=== PATIENT | female | born 1930 | race Caucasian/White ===

== ENCOUNTER 2017-10-03 14:58 | Observation (INO) | payer MEDICARE, OTHER ==
[2017-10-03 16:14] LABS: ADD MAN DIFF? NO
[2017-10-03 16:15] LABS: WHITE BLOOD COUNT 5.3 10^3/ul (4.8-10.8)
[2017-10-03 16:15] LABS: BASOPHILS % 0.6 % (0.0-2.0); EOSINOPHILS # 0.2 10^3/ul (0.0-0.5); EOSINOPHILS % 4.2 % (0.0-7.0); HEMATOCRIT 26.6 % (37.0-47.0); HEMOGLOBIN 8.9 g/dl (12.0-16.0); LYMPHOCYTES # 1.5 10^3/ul (0.8-2.9); LYMPHOCYTES % 29.1 % (15.0-51.0); MEAN CORPUSCULAR HGB CONC 33.5 g/dl (32.0-37.0); MEAN CORPUSCULAR VOLUME 92.7 fl (82.0-101.0); MEAN PLATELET VOLUME 11.6 fl (7.4-10.4); MONOCYTE # 0.5 10^3/ul (0.3-0.9); MONOCYTES % 8.7 % (0.0-11.0); NEUTROPHILS % 56.8 % (39.0-77.0); PLATELET COUNT 206 10^3/UL (140-415); RED BLOOD COUNT 2.87 10^6/ul (4.20-5.40); RED CELL DISTRIBUTION WIDTH 12.2 % (11.5-14.5)
[2017-10-03] MEDS: NITROGLYCERIN 2% 1 GM OINT PKT TD (16:24)
[2017-10-03] MEDS: NITROGLYCERIN (SL) 0.4 MG TAB SL (16:24)
[2017-10-03 16:27] LABS: ANION GAP 17 (8-16); BLOOD UREA NITROGEN 27 mg/dl (7-20); CALCIUM 9.1 mg/dl (8.4-10.2); CARBON DIOXIDE 31 mmol/L (21-31); CHLORIDE 96 mmol/L (97-110); CREATININE 0.91 mg/dl (0.44-1.00); GLUCOSE 239 mg/dl (70-220); POTASSIUM 3.5 mmol/L (3.5-5.1); SODIUM 140 mmol/L (135-144)
[2017-10-03 16:45] LABS: TROPONIN-I < 0.012 ng/ml (0.00-0.12)
[2017-10-03] MEDS ORDERED: ONDANSETRON 4 MG INJ IV ×2 (17:30→19:00)
[2017-10-03] MEDS ORDERED: ACETAMINOPHEN 325 MG TAB PO ×2 (17:30→19:00)
[2017-10-03] MEDS ORDERED: HYDROCODONE/APAP (5/325) TAB PO (19:00)
[2017-10-03] MEDS ORDERED: morphine 2 MG INJ IV (19:00)
[2017-10-03] MEDS ORDERED: NITROGLYCERIN (SL) 0.4 MG TAB SL (19:00)
[2017-10-03] MEDS ORDERED: NACL 0.9% 3 ML SYG IV (19:00)
[2017-10-03] MEDS ORDERED: hydrALAzine 20 MG INJ IV (19:00)
[2017-10-03] MEDS ORDERED: MAGNESIUM HYDROXIDE 30ML CUP PO (19:00)
[2017-10-03] MEDS ORDERED: LORAZEPAM 2 MG INJ IV (19:00)
[2017-10-03] MEDS ORDERED: ALBUTEROL/IPRATROPIUM (NEB) 3 ML AMP HHN (19:00)
[2017-10-03] MEDS ORDERED: NA PHOSPHATE/BIPHOS 133 ML ENEMA PR (19:00)
[2017-10-03 19:15] LABS: INR 0.94; PROTIME 12.7 Sec (11.9-14.9)
[2017-10-03 19:16] LABS: PARTIAL THROMBOPLASTIN TIME 27.4 Sec (25.0-35.0)
[2017-10-03] MEDS ORDERED: MECLIZINE 25 MG TAB PO (19:30)
[2017-10-03 20:36] LABS: FREE T4 (FREE THYROXINE) 1.51 ng/dl (0.85-1.93)
[2017-10-03] MEDS: HEPARIN 5,000 UNIT/0.5 ML VIAL SC (20:49)
[2017-10-03] MEDS ORDERED: GLUCOSE GEL 15 GRAM TUBE PO ×2 (21:10)
[2017-10-03] MEDS ORDERED: GLUCAGON 1 MG INJ IM (21:10)
[2017-10-03] MEDS ORDERED: DEXTROSE 50% 50 ML SYRINGE IV ×2 (21:10)
[2017-10-03] MEDS ORDERED: GLUCOSE GEL 15 GRAM TUBE BUCCAL (21:10)
[2017-10-03] MEDS: INSULIN GLARGINE [LANtus] 3 ML PEN SC (21:24)
[2017-10-03] MEDS: INSULIN ASPART [NOVOLOG] 3 ML PEN SC (21:25)
[2017-10-03] MEDS: GABAPENTIN 100 MG CAP PO (22:06)
[2017-10-03] MEDS: ATORVASTATIN 20 MG TAB PO (22:06)
[2017-10-03] MEDS: ESCITALOPRAM 10 MG TAB PO (22:07)
[2017-10-03 22:46] LABS: ADD UMIC YES; UR ASCORBIC ACID NEGATIVE (NEGATIVE); UR BACTERIA FEW /HPF (NONE SEEN); UR BILIRUBIN (Dip) NEGATIVE (NEGATIVE); UR BLOOD (Dip) NEGATIVE (NEGATIVE); UR CLARITY CLEAR (CLEAR); UR COLOR YELLOW (YELLOW); UR GLUCOSE (Dip) 1+ mg/dL (NEGATIVE); UR KETONES (Dip) NEGATIVE (NEGATIVE); UR LEUKOCYTE ESTERASE (Dip) 1+ Leu/ul (NEGATIVE); UR NITRITE (Dip) NEGATIVE (NEGATIVE); UR RBC 2 /HPF (0-5); UR SPECIFIC GRAVITY (Dip) 1.008 (1.003-1.030); UR SQUAMOUS EPITHELIAL CELL FEW /HPF (FEW); UR TOTAL PROTEIN (Dip) NEGATIVE (NEGATIVE); UR UROBILINOGEN (Dip) NEGATIVE (NEGATIVE); UR WBC 1 /HPF (0-5)
[2017-10-03 23:37] LABS: CREATINE KINASE 50 IU/L (23-200)
[2017-10-03 23:49] LABS: CK INDEX 1.5; CK-MB 0.77 ng/ml (0.0-2.4); TROPONIN-I 0.013 ng/ml (0.00-0.12)
[2017-10-04 01:46] LABS: CREATINE KINASE 51 IU/L (23-200)
[2017-10-04 02:00] LABS: CK INDEX 1.4; CK-MB 0.71 ng/ml (0.0-2.4); TROPONIN-I 0.017 ng/ml (0.00-0.12)
[2017-10-04] MEDS: ACCU-CHEK XX (02:02)
[2017-10-04] MEDS: INSULIN ASPART [NOVOLOG] 3 ML PEN SC ×4 (08:14→21:00)
[2017-10-04] MEDS: HEPARIN 5,000 UNIT/0.5 ML VIAL SC ×2 (08:18→20:26)
[2017-10-04] MEDS: FISH OIL 1,000 MG CAP PO (08:19)
[2017-10-04] MEDS: PANTOPRAZOLE (EC) 40 MG TAB PO (08:19)
[2017-10-04] MEDS: DOCUSATE SODIUM 100 MG CAP PO ×2 (08:19→20:23)
[2017-10-04] MEDS: GABAPENTIN 100 MG CAP PO ×3 (08:19→20:23)
[2017-10-04] MEDS: FUROSEMIDE 40 MG TAB PO (08:20)
[2017-10-04] MEDS: ASPIRIN (EC) 81 MG TAB PO (08:24)
[2017-10-04 08:49] LABS: ADD MAN DIFF? NO
[2017-10-04 08:57] LABS: BASOPHILS % 0.6 % (0.0-2.0); EOSINOPHILS # 0.2 10^3/ul (0.0-0.5); EOSINOPHILS % 4.2 % (0.0-7.0); HEMATOCRIT 31.2 % (37.0-47.0); HEMOGLOBIN 10.2 g/dl (12.0-16.0); LYMPHOCYTES # 1.7 10^3/ul (0.8-2.9); LYMPHOCYTES % 34.7 % (15.0-51.0); MEAN CORPUSCULAR HEMOGLOBIN 30.1 pg (29.0-33.0); MEAN CORPUSCULAR HGB CONC 32.7 g/dl (32.0-37.0); MEAN PLATELET VOLUME 11.8 fl (7.4-10.4); MONOCYTE # 0.4 10^3/ul (0.3-0.9); MONOCYTES % 9.1 % (0.0-11.0); NEUTROPHIL # 2.4 10^3/ul (1.6-7.5); PLATELET COUNT 197 10^3/UL (140-415); RED BLOOD COUNT 3.39 10^6/ul (4.20-5.40); RED CELL DISTRIBUTION WIDTH 12.2 % (11.5-14.5)
[2017-10-04 08:57] LABS: WHITE BLOOD COUNT 4.8 10^3/ul (4.8-10.8)
[2017-10-04 09:14] LABS: CHOL/HDL RATIO 4.6 RATIO; HDL CHOLESTEROL 33 mg/dl (33-92); LDL CHOLESTEROL,CALCULATED 93 mg/dl; TRIGLYCERIDES 133 mg/dl (0-149)
[2017-10-04 09:14] LABS: CHOLESTEROL 153 mg/dl (100-200)
[2017-10-04 09:18] LABS: ANION GAP 18 (8-16); BLOOD UREA NITROGEN 23 mg/dl (7-20); CALCIUM 9.3 mg/dl (8.4-10.2); CARBON DIOXIDE 33 mmol/L (21-31); CHLORIDE 97 mmol/L (97-110); CREATININE 0.84 mg/dl (0.44-1.00); GLUCOSE 205 mg/dl (70-220); MAGNESIUM 1.3 mg/dl (1.7-2.5); PHOSPHORUS 4.3 mg/dl (2.5-4.9); POTASSIUM 3.7 mmol/L (3.5-5.1); SODIUM 144 mmol/L (135-144)
[2017-10-04 09:21] LABS: CREATINE KINASE 45 IU/L (23-200)
[2017-10-04 09:26] LABS: CK INDEX 1.5; CK-MB 0.66 ng/ml (0.0-2.4); TROPONIN-I 0.019 ng/ml (0.00-0.12)
[2017-10-04 09:27] LABS: HEMOGLOBIN A1C 6.5 % (0-5.9)
[2017-10-04 13:34] LABS: THYROID STIMULATING HORMONE 0.637 MIU/L (0.465-4.680)
[2017-10-04] MEDS: MAGNESIUM SULFATE 3 GM in DEXTROSE 5% 100 ML IVPB (15:03)
[2017-10-04] MEDS: LEVOFLOXACIN 500 MG TAB PO (15:18)
[2017-10-04 15:26] LABS: CREATINE KINASE 46 IU/L (23-200)
[2017-10-04 15:38] LABS: CK INDEX 1.6; CK-MB 0.73 ng/ml (0.0-2.4)
[2017-10-04 15:50] LABS: TROPONIN-I < 0.012 ng/ml (0.00-0.12)
[2017-10-04] MEDS: ESCITALOPRAM 10 MG TAB PO (20:23)
[2017-10-04] MEDS: ATORVASTATIN 20 MG TAB PO (20:23)
[2017-10-04] MEDS: INSULIN GLARGINE [LANtus] 3 ML PEN SC (20:25)
[2017-10-05] MEDS: ACCU-CHEK XX (02:00)
[2017-10-05] MEDS: LEVOFLOXACIN 250 MG TAB PO (06:28)
[2017-10-05] MEDS: PANTOPRAZOLE (EC) 40 MG TAB PO ×2 (06:32→08:29)
[2017-10-05] MEDS: ASPIRIN (EC) 81 MG TAB PO (08:29)
[2017-10-05] MEDS: FUROSEMIDE 40 MG TAB PO (08:29)
[2017-10-05] MEDS: GABAPENTIN 100 MG CAP PO ×2 (08:29→13:21)
[2017-10-05] MEDS: FISH OIL 1,000 MG CAP PO (08:29)
[2017-10-05] MEDS: HEPARIN 5,000 UNIT/0.5 ML VIAL SC (08:32)
[2017-10-05] MEDS: INSULIN ASPART [NOVOLOG] 3 ML PEN SC ×2 (08:33→12:20)
[2017-10-05 08:56] LABS: ADD MAN DIFF? NO
[2017-10-05 09:01] LABS: WHITE BLOOD COUNT 6.1 10^3/ul (4.8-10.8)
[2017-10-05 09:01] LABS: BASOPHILS % 0.3 % (0.0-2.0); EOSINOPHILS # 0.2 10^3/ul (0.0-0.5); EOSINOPHILS % 3.5 % (0.0-7.0); HEMATOCRIT 32.1 % (37.0-47.0); HEMOGLOBIN 10.6 g/dl (12.0-16.0); LYMPHOCYTES # 1.8 10^3/ul (0.8-2.9); MEAN CORPUSCULAR HEMOGLOBIN 30.5 pg (29.0-33.0); MEAN CORPUSCULAR VOLUME 92.5 fl (82.0-101.0); MEAN PLATELET VOLUME 12.5 fl (7.4-10.4); MONOCYTE # 0.5 10^3/ul (0.3-0.9); MONOCYTES % 7.9 % (0.0-11.0); NEUTROPHIL # 3.5 10^3/ul (1.6-7.5); NEUTROPHILS % 57.6 % (39.0-77.0); PLATELET COUNT 221 10^3/UL (140-415); RED BLOOD COUNT 3.47 10^6/ul (4.20-5.40); RED CELL DISTRIBUTION WIDTH 12.3 % (11.5-14.5)
[2017-10-05 09:17] LABS: ANION GAP 16 (8-16); BLOOD UREA NITROGEN 22 mg/dl (7-20); CALCIUM 9.4 mg/dl (8.4-10.2); CARBON DIOXIDE 34 mmol/L (21-31); CHLORIDE 96 mmol/L (97-110); GLUCOSE 132 mg/dl (70-220); POTASSIUM 3.5 mmol/L (3.5-5.1); SODIUM 142 mmol/L (135-144)
== END 2017-10-05 15:20 | disposition home health service (06) ==
LOC: E/R 14:58 → MS4 17:25
DX: R07.9 Chest pain, unspecified (principal); R06.02 Shortness of breath; E11.9 Type 2 diabetes mellitus without complications; I11.0 Hypertensive heart disease with heart failure; I50.9 Heart failure, unspecified; E78.00 Pure hypercholesterolemia, unspecified; N39.0 Urinary tract infection, site not specified; Z79.82 Long term (current) use of aspirin; Z79.84 Long term (current) use of oral hypoglycemic drugs
CPT/HCPCS: 36415; 71045; 80048; 80061; 81001; 82550; 82553; 82962; 83036; 83735; 84100; 84439; 84443; 84484; 85025; 85610; 85730; 87081; 92610; 93005; 93306; 97116; 97162; 97530; 99285-25; G0378